=== PATIENT | male | born 1935 | race African-American/Black ===

== ENCOUNTER 2018-02-07 15:34 | Emergency (ER) | payer OTHER ==
[~2018-02-07] VITALS: Ht 172.7 cm; Wt 97.7 kg
[2018-02-07] MEDS ORDERED: HTN PO (15:42)
[2018-02-07] MEDS ORDERED: INSNOV SQ (15:42)
[2018-02-07] MEDS ORDERED: INSLAN SQ (15:42)
[2018-02-07 15:48] LABS: GLUCOSE,POINT OF CARE 85 MG/DL (70-110)
[2018-02-07 16:10] VITALS: BP 145/87
== END 2018-02-07 16:34 | disposition home or self-care (01) ==
LOC: EMS 15:36
DX: T16.2XXA Foreign body in left ear, initial encounter (principal); E11.9 Type 2 diabetes mellitus without complications; I10 Essential (primary) hypertension; Z79.4 Long term (current) use of insulin; Z88.0 Allergy status to penicillin; X58.XXXA Exposure to other specified factors, initial encounter; Y93.89 Activity, other specified; Y92.89 Other specified places as the place of occurrence of the external cause; Y99.8 Other external cause status
CPT/HCPCS: 69200; 82962; 99284